=== PATIENT | female | born 2000 | race Hispanic/Latino ===

== ENCOUNTER 2022-05-28 20:56 | Emergency (ER) | payer OTHER ==
[~2022-05-28] VITALS: Ht 157.5 cm; Wt 77.1 kg
== END 2022-05-28 21:45 | disposition home or self-care (01) ==
LOC: FSED 21:04
DX: O26.92 Pregnancy related conditions, unspecified, second trimester (principal); R04.0 Epistaxis
CPT/HCPCS: 99282